=== PATIENT | male | born 1970 | race Caucasian/White ===

== ENCOUNTER → 2020-12-15 13:14 | Outpatient (BNVA) | payer MEDICARE, MEDICAID, SELFPAY | PROVIDERS: Family Provider Nurse Practitioner; Visit Provider Family Medicine | DX: R31.9 Hematuria, unspecified (principal) | CPT/HCPCS: 81003; 85025; 87077; 87086; 87184; G0103 ==

== ENCOUNTER → 2021-01-06 12:19 | Outpatient (BNVA) | payer MEDICARE, MEDICAID, SELFPAY | PROVIDERS: Family Provider Nurse Practitioner; PCP Family Medicine; Visit Provider Urology | DX: R31.0 Gross hematuria (principal) | CPT/HCPCS: 81003 ==

== ENCOUNTER → 2021-01-19 10:29 | Outpatient (BNVA) | payer MEDICARE, MEDICAID, SELFPAY | PROVIDERS: Family Provider Nurse Practitioner; PCP Family Medicine; Visit Provider Urology | DX: R31.0 Gross hematuria (principal) | CPT/HCPCS: 87086 ==

== ENCOUNTER 2021-01-26 07:48 | Outpatient (CLI) | payer MEDICARE, MEDICAID, SELFPAY ==
--- NOTE | 2021-01-26 08:00 | US_ITS ---
WS: [id number] SCROTAL ULTRASOUND EXAMINATION CLINICAL INFORMATION: HYDROCELE COMPARISON: 2015 FINDINGS: TESTES Normal in size and echotexture, without focal lesion. Color Doppler: Normal color Doppler flow pattern. Right testes size: 6.1 cm x 3.4 cm x 2.7 cm. Left testes size: 6.8 cm x 2.5 cm x 3.8 cm. EPIDIDYMIDES Normal in size and echotexture, without focal lesion. Color Doppler: Normal color Doppler flow pattern. Right epididymis size: 3.7 cm x cm x cm. Left epididymitis size: 3.5 cm x cm x cm. HYDROCELE Large bilateral hydroceles VARICOCELE None. OTHER FINDINGS None. US/US scrotum [id number] IMPRESSION: 1. Large bilateral hydroceles. Left hydrocele was present in 2014. Right hydro josue is new. 2. Testicles are otherwise normal in appearance. Normal vascularity. 3. No other significant findings.
== END 2021-01-26 07:49 | disposition home or self-care (01) ==
LOC: RAD 07:51
PROVIDERS: PCP Family Medicine; Visit Provider Urology
DX: N43.3 Hydrocele, unspecified (principal)
CPT/HCPCS: 76870; 81003; 93976

== ENCOUNTER → 2021-02-13 09:31 | Outpatient (BNVA) | payer MEDICARE, MEDICAID, SELFPAY | PROVIDERS: PCP Family Medicine; Visit Provider Urology | DX: Z20.822 Contact with and (suspected) exposure to COVID-19 (principal); N43.3 Hydrocele, unspecified | CPT/HCPCS: 87635 ==

== ENCOUNTER → 2022-03-29 15:43 | Outpatient (BNVA) | payer MEDICARE, MEDICAID, SELFPAY | PROVIDERS: PCP Family Medicine; Visit Provider Nurse Practitioner Family | DX: I10 Essential (primary) hypertension (principal) | CPT/HCPCS: 80053; 80061; 84443; 85025 ==

== ENCOUNTER → 2023-04-04 07:33 | Outpatient (BNVA) | payer MEDICARE, MEDICAID, SELFPAY | PROVIDERS: PCP Family Medicine; Visit Provider Nurse Practitioner Family | DX: I10 Essential (primary) hypertension (principal) | CPT/HCPCS: 80053; 80061; 84443; 85025 ==

== ENCOUNTER → 2023-05-08 09:38 | Outpatient (BNVA) | payer MEDICARE, MEDICAID, SELFPAY | PROVIDERS: PCP Family Medicine; Visit Provider Nurse Practitioner Family | DX: F10.20 Alcohol dependence, uncomplicated (principal) | CPT/HCPCS: 80053; 85025 ==

== ENCOUNTER → 2024-03-31 10:15 | Outpatient (BNVA) | payer MEDICARE, MEDICAID, SELFPAY | PROVIDERS: PCP Nurse Practitioner Family; Visit Provider Nurse Practitioner Family | DX: R74.8 Abnormal levels of other serum enzymes (principal); I10 Essential (primary) hypertension | CPT/HCPCS: 80053; 80061 ==